=== PATIENT | female | born 1955 | race Hispanic/Latino ===

== ENCOUNTER 2019-03-19 12:50 | Outpatient (CLI) | payer OTHER ==
--- NOTE | 2019-03-19 14:22 | Mammography Report ---
BILATERAL DIGITAL DIAGNOSTIC MAMMOGRAM WITH CAD -- 03/19/2019 BILATERAL LIMITED BREAST ULTRASOUND INDICATION: Left breast pain. TECHNIQUE: Digital bilateral mammographic imaging was performed. Limited ultrasound was performed. T his examination was interpreted with the benefit of Computer-Aided Detection (CAD) analysis. COMPARISON: 02/01/2016 Breast Density: The breasts are almost entirely fatty. MAMMOGRAPHIC FINDINGS: There is no evidence of dominant mass, suspicious calcifications or architectu ral distortion in either breast. A right outer low-density focal asymmetry in the anterior depth. ULTRASOUND FINDINGS: Targeted ultrasound evaluation was performed of the area of interest. Ultrasou nd of the outer right breast was performed and demonstrated normal fatty and fibroglandular structure s. No mass, cyst or shadowing. Ultrasound of the left breast was performed in the area of pain from 1 0-1 o'clock 7 cm from the nipple and demonstrated normal structures with no mass, cyst or shadowing. IMPRESSION: A benign right mammographic asymmetry and negative left breast. No explanation for left b reast pain. Follow up recommendation: Routine yearly BI-RADS Category 2: Benign. A "normal" or negative report should not discourage follow up or biopsy of a clinically significant f inding. A written summary of these findings will be mailed to the patient. The patient will be entered into a mammography reporting system which will generate a reminder letter for the patient's next appointmen t at the appropriate interval. According to the [employer], yearly mammograms are recommended starting at age 40 and continuing as long as a woman is in good health. Breast MRI is recommended for women with an deon roximately 20-25% or greater lifetime risk of breast cancer, including women with a strong family his tory of breast or ovarian cancer and women who have been treated for Hodgkin's disease. Signer Name: Bennie Muñoz MD Signed: 03/19/2019 2:18 PM Workstation Name: [id number]
== END 2019-03-19 12:51 | disposition home or self-care (01) ==
LOC: SPVWC 12:50
PROVIDERS: ATTEND Internal Medicine
DX: R92.8 Other abnormal and inconclusive findings on diagnostic imaging of breast (principal); N64.4 Mastodynia; E78.00 Pure hypercholesterolemia, unspecified; I10 Essential (primary) hypertension
CPT/HCPCS: 77066

== ENCOUNTER 2020-03-30 12:39 | Outpatient (CLI) | payer OTHER ==
--- NOTE | 2020-03-30 16:50 | Mammography Report ---
DIGITAL SCREENING MAMMOGRAM WITH CAD, 03/30/2020 CLINICAL INFORMATION / INDICATION: Routine screening mammography. TECHNIQUE: Digital bilateral 2D mammography was obtained in the craniocaudal and mediolateral obliqu e projections. This examination was interpreted with the benefit of Computer-Aided Detection analysis . COMPARISON: 03/19/2019, 02/16/2016, 02/01/2016 FINDINGS: Breast Density: The breasts are almost entirely fatty. No dominant mass, suspicious calcifications, or architectural distortion in either breast. IMPRESSION: No mammographic evidence of malignancy. Follow up recommendation: Routine yearly BI-RADS Category 1: Negative. A "normal" or negative report should not discourage follow up or biopsy of a clinically significant f inding. A written summary of these findings will be mailed to the patient. The patient will be entered into a mammography reporting system which will generate a reminder letter for the patient's next appointmen t at the appropriate interval. The [employer] recommends yearly mammograms starting at age 40 and continuing as l tequila as a woman is in good health. Breast MRI is recommended for women with an approximate 20-25% or greater lifetime risk of breast cancer, including women with a strong family history of breast or ova abel cancer or who have been treated for Hodgkin's disease. Signer Name: Balaji Cardoza MD Signed: 03/30/2020 4:45 PM Workstation Name: [id number]
== END 2020-03-30 12:40 | disposition home or self-care (01) ==
LOC: SPVWC 12:39
PROVIDERS: ATTEND Internal Medicine
DX: Z12.31 Encounter for screening mammogram for malignant neoplasm of breast (principal)
CPT/HCPCS: 77067